=== PATIENT | female | born 1980 | race African-American/Black ===

== ENCOUNTER 2017-10-30 20:21 | Emergency (ER) | payer SELFPAY | END 2017-10-30 21:24 | disposition home or self-care (01) | LOC: ER 20:21 | DX: S63.502A Unspecified sprain of left wrist, initial encounter (principal); W01.0XXA Fall on same level from slipping, tripping and stumbling without subsequent striking against object, initial encounter; Y93.89 Activity, other specified; Y92.89 Other specified places as the place of occurrence of the external cause; Y99.8 Other external cause status | CPT/HCPCS: 29125; 73110; 99284 ==

== ENCOUNTER 2017-11-06 02:05 | Emergency (ER) | payer SELFPAY ==
[2017-11-06] MEDS: IBUPROFEN 800 MG TABLET. PO (03:00)
[2017-11-06 03:08] LABS: URINE HCG POC HCG NEGATIVE (Negative)
== END 2017-11-06 03:24 | disposition home or self-care (01) ==
LOC: ER 02:05
DX: S30.0XXA Contusion of lower back and pelvis, initial encounter (principal); W01.0XXA Fall on same level from slipping, tripping and stumbling without subsequent striking against object, initial encounter; Y93.02 Activity, running; Y92.89 Other specified places as the place of occurrence of the external cause; Y99.8 Other external cause status
CPT/HCPCS: 72170; 81025; 99283